=== PATIENT | male | born 2000 | race Caucasian/White ===

== ENCOUNTER 2022-05-15 21:32 | Observation (INO) ==
[2022-05-15] MEDS ORDERED: IOPAMIDOL 100 ML BOTTLE IV ONE (21:33)
[2022-05-15] MEDS ORDERED: 0.9 % SODIUM CHLORIDE 1,000 ML IV ONE (21:35)
[2022-05-15] MEDS ORDERED: KETOROLAC 30 MG/ML VIAL IV ONE (21:35)
[2022-05-15] MEDS ORDERED: ONDANSETRON 4 MG/2 ML VIAL IV ONE (21:41)
[2022-05-15] MEDS ORDERED: fentaNYL 100 MCG/2 ML VIAL IV ONE (21:41)
--- NOTE | 2022-05-15 22:14 | Emergency Department Note ---
Abdominal Pain HPI General Chief Complaint: Abdominal Pain Stated Complaint: Rt lower quadrant abdominal pain for three days Time Seen by Provider: 05/15/22 21:34 Source: patient Mode of arrival: ambulatory Limitations: no limitations History of Present Illness HPI Narrative: Narrative: Patient presents ED with complaints of abdominal pain x3 days. Pain is rated 8/10. He reports associated nausea. States the pain is in the right lower quadrant of his abdomen. He denies fever, chills, vomiting, diarrhea, dysuria, hematuria, urinary frequency, trauma to the abdomen, melena, hematochezia. His last bowel movement was earlier today and it was normal. Patient denies any other alleviating or aggravating factors. Related Data Allergies Allergy/AdvReac Type Severity Reaction Status Date / Time Amoxicillin [From Augmentin] AdvReac Severe Verified 05/15/22 21:37 clavulanic acid AdvReac Severe Verified 05/15/22 21:37 [From Augmentin] ketamine AdvReac Severe Hallucinati Verified 05/15/22 21:37 ng Review of Systems ROS ROS Narrative: Narrative: All systems ED: reviewed and negative except as stated. PFSH Narrative Patient History Narrative: Narrative: Medical/Surgical/Family History All Active Problems (Updated 05/15/22 @ 22:48 by Isaac Crum DO) Acute appendicitis (Acute) Social History Smoking Status: Never smoker Exam Narrative Narrative: Narrative: General Limitations: no limitations General appearance: Present grimacing ENT ENT: Present normal oropharynx and mucous membranes moist Respiratory Respiratory: Present normal lung sounds bilaterally; Absent respiratory distress Cardiovascular Cardiovascular: Present normal rhythm and tachycardia Adbominal Abdominal: Present soft, tenderness and normal bowel sounds Expanded Abdominal Abdominal Tenderness: Present RLQ Extremities Extremities: Present normal capillary refill Back Back: Absent CVA tenderness (R) or CVA tenderness (L) Neurological Neurological: Present oriented X3 and normal gait Psychiatric Psychiatric: Present normal affect and normal mood Skin Skin: Present warm (WNL) and intact Course Course Course Narrative: Patient was evaluated for right lower quadrant abdominal pain. Patient was given IV Toradol, fentanyl and morphine to help control his pain while he was here in the ED. He is also given some IV fluid. Labs were obtained and were unremarkable to include normal white cell count. CT abdomen pelvis obtained with image reviewed myself which revealed acute appendicitis. Patient given IV Cipro and Flagyl due to his penicillin allergy. Case was discussed with general surgeon who evaluate the patient for admission to the hospital. Plan of care was discussed with patient expressed verbal understanding and agreement of plan. Consultations Consultation #1: Case discussed with general surgeon, Dr. Silva, who states he will come down to evaluate the patient admit for surgical correction and appendicitis Time: 22:49 Vital Signs Vital signs: Vital Signs Temperature 98.8 F 05/15/22 21:33 Pulse Rate 103 H 05/15/22 21:33 Respiratory Rate 18 05/15/22 21:33 Blood Pressure 159/89 05/15/22 21:33 Pulse Oximetry (%) 100 05/15/22 21:33 Oxygen Delivery Method Room Air 05/15/22 21:33 Temperature 98.8 F 05/15/22 21:33 Pulse Rate 103 H 05/15/22 21:33 Respiratory Rate 18 05/15/22 21:33 Blood Pressure 159/89 05/15/22 21:33 Pulse Oximetry (%) 100 05/15/22 21:33 Oxygen Delivery Method Room Air 05/15/22 21:33 MDM MDM Narrative Medical decision making narrative: Narrative: Differential Diagnosis Differential Diagnosis: Appendicitis, small bowel obstruction, muscle strain, hernia Medical Records Medical records reviewed: Yes I reviewed the patient's medical records. Lab Data Lab results reviewed: Yes I reviewed the patient's lab results. 05/15/22 21:55 Labs: Lab Results 05/15/22 Range/Units 21:55 WBC 10.5 (4.5-11.0) K/mcL RBC 5.58 (4.63-6.08) M/mcL Hgb 15.7 (13.7-17.5) g/dL Hct 46.2 (40.1-51.0) % MCV 82.8 (80.0-100.0) fL MCH 28.1 (26.0-34.0) pg MCHC 34.0 (31.0-36.0) g/dL RDW 12.6 (11.5-14.5) % Plt Count 282 (140-440) K/mcL MPV 11.6 (8.8-12.5) fL Immature Gran % (Auto) 0.2 (0.0-0.5) % Neut % (Auto) 56.6 (38.0-78.0) % Lymph % (Auto) 33.1 (15.5-49.0) % Catron % (Auto) 6.6 (1.0-12.0) % Eos % (Auto) 2.8 (0.0-7.0) % Baso % (Auto) 0.7 (0.0-2.0) % Lymph # (Auto) 3.48 (1.50-4.80) K/mcL Catron # (Auto) 0.69 (0.10-0.90) K/mcL Eos # (Auto) 0.29 (0.00-0.70) K/mcL Baso # (Auto) 0.07 (0.00-0.30) K/mcL Immature Gran # 0.02 (0.00-0.05) K/mcl Absolute Neutrophils 5.95 (1.80-8.00) K/mcL Radiology Data Radiology results reviewed: Yes I reviewed the patient's radiology results. Radiology results narrative: CT abdomen pelvis obtained revealed appendicitis Chest x-ray obtained with image reviewed myself, no acute cardiopulmonary findings EKG Data EKG #1: EKG attestation: Yes I reviewed and interpreted this EKG. EKG shows normal: sinus rhythm Rate: normal Rhythm: NSR Heart block present: None ST segment elevation in: None ST segment depression in: None QTc: normal QRS morphology: Present normal Interpretation: no acute changes Core Measures AMI Core Measures Followed: Yes Discharge Plan Patient/Caregiver Discharge Instructions Pt seen by SENIOR CONSUMER INSIGHTS CONSULTANT/PA only: No Clinical Impression: Acute appendicitis Patient Disposition: Xfer As Outpt/Obs ([facility]) Condition: Good Follow up with: No,PCP [Primary Care Provider] -
[2022-05-15 22:24] LABS: Basophils # (Auto) 0.07 K/mcL (0.00-0.30); Basophils % (Auto) 0.7 % (0.0-2.0); Eosinophils # (Auto) 0.29 K/mcL (0.00-0.70); Eosinophils % (Auto) 2.8 % (0.0-7.0); Hematocrit 46.2 % (40.1-51.0); Hemoglobin 15.7 g/dL (13.7-17.5); Lymphocytes # (Auto) 3.48 K/mcL (1.50-4.80); Lymphocytes % (Auto) 33.1 % (15.5-49.0); Mean Cell Volume 82.8 fL (80.0-100.0); Mean Platelet Volume 11.6 fL (8.8-12.5); Monocytes # (Auto) 0.69 K/mcL (0.10-0.90); Monocytes % (Auto) 6.6 % (1.0-12.0); Neutrophils % (Auto) 56.6 % (38.0-78.0); Platelet Count 282 K/mcL (140-440); RBC 5.58 M/mcL (4.63-6.08); Red Cell Distribution Width 12.6 % (11.5-14.5); WBC 10.5 K/mcL (4.5-11.0)
[2022-05-15] MEDS ORDERED: morphine 2 MG/ML VIAL IV ONE (22:45)
[2022-05-15] MEDS ORDERED: CIPROFLOXACIN 400 MG/200 ML BAG IV ONE (22:54)
[2022-05-15] MEDS ORDERED: metroNIDAZOLE 500 MG/100 ML BAG IV ONE (22:54)
--- NOTE | 2022-05-15 23:41 | General Surgery Consult Note ---
HPI Date of Consult Consult Date: 05/15/22 Requesting physician: Isaac Crum Primary Care Provider: PCP No Consult Narrative Patient Information: Note initiated : 05/15/22 at 11:30 pm Service Date, if different from initiated Date: [] Patient: Oliver Harris a 21 y/o M admitted on for Rt lower quadrant abdominal pain for three days. Chief Complaint: [] Oliver is seen in consultation tonight with a roughly 48 hour history of worsening RLQ Pain. The pain was mild at first but has steadily worsened since and he presented to the ED. A CT Scan was obtained confirming findings consistent with Acute Appendicitis. He is in otherwise good health and denies any Cardiac or Pulmonary issues. He is not on any oral anticoagulants. He has not had prior abdominal surgery. He has not had significant issues with nausea or vomiting. Chief complaint: RLQ Abdominal Pain Reason for consult: Acute Appendicitis cc:: CC: Review of Systems All systems: reviewed and no additional remarkable complaints except as stated Constitutional Additional comments: no recent changes EENT Additional comments: no new issues Cardiovascular Additional comments: no chest pain Respiratory Additional comments: no cough or SOB Gastrointestinal Additional comments: see HPI Genitourinary Additional comments: no hematuria Integumentary Additional comments: no skin changes Neurological Additional comments: no changes Hematologic/Lymphatic Hematologic/Lymphatic: Absent lymphadenopathy Additional comments: no bleeding issues PFSH PFSH All Active Problems (Updated 05/15/22 @ 22:48 by Isaac Crum DO) Acute appendicitis (Acute) Social History smoking status: Never smoker MEDS/ALLERGIES Home Medications and Allergies Allergies Allergy/AdvReac Type Severity Reaction Status Date / Time Amoxicillin [From Augmentin] AdvReac Severe Verified 05/15/22 21:37 clavulanic acid AdvReac Severe Verified 05/15/22 21:37 [From Augmentin] ketamine AdvReac Severe Hallucinati Verified 05/15/22 21:37 ng Physical Examination Vital Signs Vital signs: Temp Pulse Resp BP Pulse Ox O2 Del Method 98.8 F 95 H 18 156/105 99 Room Air 05/15/22 21:33 05/15/22 23:18 05/15/22 21:33 05/15/22 23:18 05/15/22 23:18 05/15/22 21:33 General physical appearance General physical exam: well developed and other (looks well, non toxic, NAD ) Eyes Eye exam: normal ocular movement; negative icteric ENT ENT exam: other (normal appearance ) Head Head exam IM: Present atraumatic, normal inspection and normocephalic Neck Neck exam: no lymphadenopathy; negative trachea midline Cardiovascular Cardiovascular exam IM: Present normal rate and rhythm Respiratory Respiratory exam: normal respiratory effort Abdomen Abdomen: Present soft (soft and non distended, highly TTP in the focal RLQ, remainder of abdominal exam is entirely benign ) Integumentary Integumentary: Present other (normal appearing intact skin ) Neurologic Neurologic: Present other (grossly intact ) Psychiatric Psychiatric: Present oriented to time, oriented to person and oriented to place Results Labs 05/15/22 21:55 Labs: All other labs normal. A/P Assessment and plan (1) Acute appendicitis: Assessment and plan: Acute Appendicitis Issues and options are reviewed and discussed at length. Surgery is recommended but the option for non operative antibiotic based management is discussed at length as well. He would like to proceed with surgery and Risks, Benefits, Potential Complications and Alternative Treatment Options are all reviewed and discussed at length We will bring him in to the hospital tonight for IVF, IV ABs and place him on the OR schedule at the earliest opportunity tomorrow Status: Acute Time Spent With Patient Time: Total time spent is greater than 50% in coordination of care (as documented) at patient's floor/unit and/or counseling patient:
[2022-05-16] MEDS: HYDROmorphone 0.5 MG/0.5 ML SYRINGE IV PRN ×10 (00:11→22:03)
[2022-05-16] MEDS: METOCLOPRAMIDE 10 MG/2 ML VIAL IV PRN ×3 (00:13→17:18)
[2022-05-16] MEDS: DEXTROSE 5%-LR 1,000 ML IV SCH ×3 (00:16→21:45)
[2022-05-16] MEDS: CIPROFLOXACIN 400 MG/200 ML BAG IV SCH ×3 (00:17→23:30)
[2022-05-16] MEDS: metroNIDAZOLE 500 MG/100 ML BAG IV SCH ×4 (00:17→22:23)
--- NOTE | 2022-05-16 02:31 | XRay Report ---
CLINICAL INFORMATION: Preop COMPARISON: None. TECHNIQUE: Portable FINDINGS: The heart size is accentuated by lordotic positioning and leftward rotation The mediastinum and pulmonary vessels are unremarkable. The lungs are clear. There are no effusions. The bones and soft tissues are within normal limits. IMPRESSION: Normal chest. Interpreted and Authenticated by: Tyler Baker 05/16/22
--- NOTE | 2022-05-16 02:46 | Cat Scan Report ---
CLINICAL INFORMATION: Right lower quadrant pain COMPARISON: None. TECHNIQUE: Following enteric contrast, 80 cc of Isovue-370 were injected intravenously, and 60 seconds later, 0.625 mm helical slices were obtained from the mid heart through the subtrochanteric regions. Following reconstruction, 2.5 mm sagittal, coronal and axial reformatted images were processed and reviewed at bone, lung and soft tissue windows. Five minutes later, 0.625 mm helical slices were obtained from the mid heart through the kidneys and viewed at soft tissue windows.The exam was performed using radiation dose optimization techniques including, but not limited to, automated exposure control, adjustment of the mA and/or kV according to patient size and use of iterative reconstruction technique. FINDINGS: The lung bases are clear. No effusions. The visualized heart is grossly normal. Abdominal images show the gallbladder and bile ducts, liver, both kidneys, adrenal glands, spleen, pancreas and aorta, including aortic branches, are normal in size, configuration and attenuation without focal lesion. There is no free air, free fluid or adenopathy. Pelvic images show normal urinary bladder, prostate and seminal vesicles. The appendix, located in the medial pericecal region, is mildly dilated (9 mm) with wall thickening, mucosal enhancement and phlegmon in the periappendiceal fat. Findings compatible simple appendicitis.. The stomach, small bowel, and large bowel are grossly normal. Bone windows show no osseous abnormality IMPRESSION: Simple appendicitis. Appendix is located in the medial pericecal region Interpreted and Authenticated by: Tyler Baker 05/16/22
--- NOTE | 2022-05-16 07:37 | EKG ---
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
[2022-05-16] MEDS: PROMETHAZINE 25 MG/ML VIAL IV PRN ×2 (10:53→18:35)
[2022-05-16] MEDS ORDERED: SCOPOLAMINE 1 PATCH PATCH TOPICAL PRN (12:19)
[2022-05-16] MEDS ORDERED: fentaNYL 100 MCG/2 ML VIAL IV ONE (14:53)
[2022-05-16] MEDS ORDERED: TRANEXAMIC ACID 1,000 MG/10 ML VIAL ONE (14:53)
[2022-05-16] MEDS ORDERED: LIDOCAINE HCL/PF 100 MG/5 ML SYRINGE IV ONE (14:53)
[2022-05-16] MEDS ORDERED: PROPOFOL 200 MG/20 ML VIAL IV ONE (14:53)
[2022-05-16] MEDS ORDERED: MIDAZOLAM 2 MG/2 ML VIAL ONE (14:53)
[2022-05-16] MEDS ORDERED: ROCURONIUM 10 MG/ML ML IV ONE (14:53)
[2022-05-16] MEDS ORDERED: SUGAMMADEX SODIUM 200 MG/2 ML VIAL IV ONE (14:53)
[2022-05-16] MEDS ORDERED: IPRATROPIUM/ALBUTEROL 3 ML AMPUL.NEB NEB PRN (15:30)
[2022-05-16] MEDS ORDERED: HYDROmorphone 0.5 MG/0.5 ML SYRINGE IV PRN (15:30)
[2022-05-16] MEDS ORDERED: MEPERIDINE 25 MG/ML VIAL IV PRN (15:30)
[2022-05-16] MEDS ORDERED: ONDANSETRON 4 MG/2 ML VIAL IV PRN (15:30)
[2022-05-16] MEDS ORDERED: BUPIVACAINE W/EPI 0.25% 50 ML VIAL IJ ONE (16:19)
[2022-05-16] MEDS: fentaNYL 100 MCG/2 ML VIAL IV PRN ×4 (16:43→16:55)
--- NOTE | 2022-05-16 16:55 | Brief Operative Note ---
Brief Operative Note Date of procedure: 05/16/22 Pre-op diagnosis: Acute Appendicitis Post-op diagnosis: same Procedure: Laparoscopic Appendectomy Grafts/Implants: No Anesthesia: GETA Findings: Minimally inflamed Appendix without evidence of perforation or gangrene Complications: none Surgeon: Mervin Silva Estimated blood loss (cc): 5 Specimens Removed/Pathology: other (appendix ) Condition: stable Disposition: PACU
[2022-05-16] MEDS: oxyCODONE HCL 5 MG TABLET PO PRN (22:57)
[2022-05-17] MEDS: HYDROmorphone 0.5 MG/0.5 ML SYRINGE IV PRN ×3 (00:36→07:44)
[2022-05-17] MEDS: DEXTROSE 5%-LR 1,000 ML IV SCH (05:14)
[2022-05-17] MEDS: oxyCODONE HCL 5 MG TABLET PO PRN ×2 (05:15→12:29)
[2022-05-17] MEDS: metroNIDAZOLE 500 MG/100 ML BAG IV SCH (07:22)
[2022-05-17] MEDS: PROMETHAZINE 25 MG/ML VIAL IV PRN (07:43)
[2022-05-17] MEDS: CIPROFLOXACIN 400 MG/200 ML BAG IV SCH (11:21)
--- NOTE | 2022-05-17 12:03 | General Surgery Progress Note ---
SUBJECTIVE Subjective Patient information: Note initiated : 05/17/22 at 12:01 pm Service Date, if different from initiated Date: [] Patient: Oliver Schreiber 21 y/o M admitted on 05/15/22 for Rt lower quadrant abdominal pain for three days. Chief Complaint: [] Some pain this am, having good bowel function, hungry Constitutional Vitals: Vital Signs Temp Pulse Resp BP Pulse Ox O2 Del Method O2 Flow Rate 98.6 F 82 14 130/81 99 Room Air 0 05/17/22 08:00 05/17/22 08:00 05/17/22 08:00 05/17/22 08:00 05/17/22 08:00 05/17/22 08:00 05/16/22 17:01 Period Temp Pulse Resp BP Sys/Green Pulse Ox O2 Del Method O2 Flow Rate Last 24 Hr 97.5 F-98.6 F 66-88 12-19 100-145/51-95 95-100 Room Air-Simple Mask 0-6 Intake and Output 05/17/22 05/17/22 05/17/22 03:59 11:59 19:59 Intake Total 400 100 Output Total 800 Balance 400 -700 Weight 234 lb 8 oz Intake & Output: Intake & Output 05/17/22 05/17/22 05/17/22 03:59 11:59 19:59 Intake Total 400 100 Output Total 800 Balance 400 -700 Weight 234 lb 8 oz Intake: IV 300 100 Oral 100 Output: Void Amount 800 Other: Urine Color Light [place] # Voids 1 # Bowel Movements 1 Exam: looks well, NAD, non toxic Respiratory Additional comments: Normal effort without distress Cardiovascular Cardiovascular exam: Present normal rate and rhythm GI/Abdominal Additional comments: soft and non distended, dressings in place Extremities Exam Additional comments: well perfused A/P Assessment and plan (1) Acute appendicitis: Status: Acute Plan POD #1 Lap Appendectomy Doing Well Advance Diet Adjust pain meds Increase activity Time Spent With Patient Time: Total time spent is greater than 50% in coordination of care (as documented) at patient's floor/unit and/or counseling patient:
--- NOTE | 2022-05-19 16:04 | Operative Note ---
DATE OF OPERATION: 05/16/2022 PREOPERATIVE DIAGNOSIS: Acute appendicitis. POSTOPERATIVE DIAGNOSIS: Acute appendicitis. OPERATIVE PROCEDURE: Laparoscopic appendectomy. SURGEON: Mervin Silva M.D. ANESTHESIA: General. PREOPERATIVE MEDICATIONS: Cipro 400 mg IV and Flagyl 500 mg IV. INDICATIONS: The patient is a 21-year-old male who presented to the emergency room late last night with findings consistent with appendicitis. CT scan seemed to corroborate this and surgery was recommended. Risks, benefits, potential complications, and alternative treatment options were all discussed at length. We discussed at length the option to not undergo surgery and recent data demonstrating both in [place] and here in the [place] that acute appendicitis can often be treated conservatively and nonoperatively with IV antibiotics, particularly if it appears to be early and uncomplicated. He very much wished to undergo surgery, however, and had a good understanding of all of the concerns, risks, benefits, potential complications, and the alternative options as mentioned above. PROCEDURE IN DETAIL: The patient was taken to the OR and placed supine on the OR table, placed under general anesthesia and intubated. Bilateral SCDs were applied and pressure sensitive areas were carefully padded. The abdomen was accessed utilizing a 0-degree 5-mm scope through a Visiport in the right upper abdomen. Once we had obtained peritoneal access, pneumoperitoneum was obtained with high-flow CO2 insufflation and the area of access was examined to make sure there was no evidence of injury; none was seen. Next, we directed our attention toward changing out the 0-degree scope for a 30-degree scope and placed our remaining trocars. This included a 5 mm periumbilical trocar site as well as a 5 mm left lower abdominal trocar site. The camera was then re-sited to the periumbilical trocar as a 30-degree camera and we enlarged the 5 mm right upper abdominal trocar to a 12 mm trocar. We then airplaned the patient towards the left side and identified the cecum and the appendix at its base, which was lying to the right inferior pericolic gutter. It appeared to be mildly edematous and indurated. It was grasped easily and retracted towards the anterior abdominal wall. It was fairly long and somewhat distended. The mesoappendix was dissected out at its base to create a small window here, which was then utilized to transect the appendix just above its junction point with the cecum utilizing a single firing of the endovascular 35 mm Endo WILBUR stapler. This left the appendix attached only by the mesoappendix, which was then taken down with a single firing along the underside of the appendix, once again utilizing the 35 mm endovascular WILBUR stapler. This fully liberated the appendix in its entirety. It was placed in an EndoCatch and removed through the subxiphoid trocar site without difficulty. It was then examined briefly on the back table and sent to Pathology. The area was then gently irrigated out. The staple lines were inspected. There was some oozing from the mesenteric staple line and this was reinforced with Surgicel as a topical hemostatic, which seemed to resolve this. We observed the area for a while to make sure there was no evidence of any additional bleeding; none was seen. We then removed the 12 mm right upper abdominal trocar site and closed the fascia here with the inlet fascial closure device utilizing several 0 Vicryl sutures. We irrigated the area out a final time and made sure there was no active bleeding or hemorrhage; none was seen. We then removed our final trocars under direct vision. Incisions were then closed with interrupted 3-0 Vicryl and 4-0 Monocryl sutures, respectively. Steri-Strips and sterile dressings were applied. The patient was awakened, extubated, and transferred to PACU in satisfactory condition. No apparent complications or issues. Sponge, needle and instrument counts were correct. Findings were discussed above. [email or web address] Job ID: [id number] Doc ID: [id number] Mervin Silva M.D.
== END 2022-05-17 14:10 | disposition home or self-care (01) ==
LOC: ED 21:32 → MEDSUR 21:32
PROVIDERS: ADMIT Surgery Surgical Critical Care; ATTEND Surgery Surgical Critical Care